=== PATIENT | female | born 1975 | race African-American/Black ===

== ENCOUNTER → 2019-10-27 | Outpatient (CLI) | payer OTHER ==
[~2019-10-27] MED LIST: ALBUTEROL0.09 MG/A3 IH; NO HOME MEDICATIONS; PREDNISONE20 MG PO
== END ==
LOC: COL.RAD 14:05
DX: D25.9 Leiomyoma of uterus, unspecified (principal)

== ENCOUNTER → 2019-11-03 | Outpatient (CLI) | payer OTHER | LOC: MC.RAD 15:15 | DX: Z12.31 Encounter for screening mammogram for malignant neoplasm of breast (principal); N63.14 Unspecified lump in the right breast, lower inner quadrant ==

== ENCOUNTER → 2019-11-10 | Outpatient (CLI) | payer OTHER | LOC: MC.RAD 07:00 | DX: Z12.31 Encounter for screening mammogram for malignant neoplasm of breast (principal) ==

== ENCOUNTER → 2020-05-11 | Outpatient (CLI) | payer OTHER ==
[~2020-05-11] MED LIST changes: +FERGON240 MG PO
== END ==
LOC: MC.RAD 09:54
DX: N63.10 Unspecified lump in the right breast, unspecified quadrant (principal)

== ENCOUNTER 2020-09-12 17:46 | Emergency (ER) | payer OTHER ==
[~2020-09-12] VITALS: Ht 162.6 cm; Wt 68.2 kg
[~2020-09-12 17:46] MED LIST changes: -FERGON240 MG PO
[2020-09-12 19:55] LABS: BASO % 0.1 % (0.0-2.0); EOS # 0.3 (0.0-0.7); EOS % 2.7 % (0-4.0); GRAN # 8.4 (1.4-6.5); LYMPH # 1.4 (1.2-3.4); LYMPH % 12.9 % (20.0-51.0); MEAN CELL VOLUME 61 fl (80.0-100.0); MEAN CORPUSCULAR HGB CONC 27 g/dl (33.0-37.0); MEAN PLATELET VOLUME 9.5 fl (7.4-10.4); MONO # 0.4 (0.1-0.6); MONO % 3.8 % (1.7-9.3); PLATELET COUNT 374 K/mm3 (130-400); RED BLOOD COUNT 4.87 M/mm3 (4.10-5.30); REDCELL DISTRIBUTION WIDTH-CV 23.5 % (11.5-14.5)
[2020-09-12 20:00] LABS: ALBUMIN 4.4 gm/dL (3.5-5.0); BILIRUBIN,TOTAL 0.7 mg/dL (0.0-1.0); CALCIUM 8.7 mg/dL (8.4-10.2); CREATININE, serum 0.58 (0.52-1.25); POTASSIUM 3.9 mmol/L (3.4-5.0); TOTAL PROTEIN 8.1 gm/dL (6.4-8.2)
[2020-09-12 20:14] LABS: HEMATOCRIT 29.7 % (37.0-47.0); HEMOGLOBIN 7.9 g/dl (12.5-16.0); MEAN CORPUSCULAR HEMOGLOBIN 16 pg (27.0-31.0)
[2020-09-12] MEDS ORDERED: PREDNISONE20 MG PO (20:40)
[2020-09-12] MEDS ORDERED: FERGON240 MG PO (20:40)
[2020-09-12 21:02] VITALS: BP 127/71; PULSE 77; TEMP 98.1
== END 2020-09-12 21:02 | disposition home or self-care, planned readmission (81) ==
LOC: COL.ER 17:46
PROVIDERS: Emergency Medicine
DX: J30.9 Allergic rhinitis, unspecified (principal); D64.9 Anemia, unspecified; J45.909 Unspecified asthma, uncomplicated; Z79.52 Long term (current) use of systemic steroids
CPT/HCPCS: J2930

== ENCOUNTER → 2020-11-19 | Outpatient (CLI) | payer OTHER ==
[~2020-11-19] MED LIST changes: +FERGON240 MG PO
== END ==
LOC: MC.RAD 13:00
DX: N63.10 Unspecified lump in the right breast, unspecified quadrant (principal)

== ENCOUNTER 2023-06-23 13:29 | Emergency (ER) | payer OTHER ==
[~2023-06-23] VITALS: Ht 162.6 cm; Wt 74.1 kg
[~2023-06-23 13:29] MED LIST changes: +CEFTIN 250250 MG/TAB PO
[2023-06-23 13:38] VITALS: TEMP 98.1
[2023-06-23] MEDS ORDERED: methylPREDNISolone Sod Succ 125 MG/2 ML VIAL IV ONE (14:00)
[2023-06-23] MEDS ORDERED: Albuterol/Ipratropium 3 MG-0.5 MG/3 ML Neb Soln IH ONE ×2 (14:00→15:00)
[2023-06-23 14:35] LABS: BASO % 0.5 % (0.0-2.0); EOS # 0.8 K/mm3 (0.0-0.7); EOS % 9.3 % (0.0-4.0); GRAN # 4.3 K/mm3 (1.4-6.5); GRAN % 53.1 % (42.2-75.2); HEMATOCRIT 37.2 % (37.0-47.0); HEMOGLOBIN 11.8 g/dl (12.5-16.0); LYMPH # 2.4 K/mm3 (1.2-3.4); LYMPH % 29.6 % (20.0-51.0); MEAN CELL VOLUME 77 fl (80.0-100.0); MEAN CORPUSCULAR HEMOGLOBIN 25 pg (27-31); MEAN CORPUSCULAR HGB CONC 32 g/dl (33.0-37.0); MEAN PLATELET VOLUME 10.1 fl (7.4-10.4); MONO # 0.6 K/mm3 (0.1-0.6); MONO % 7.4 % (1.7-9.3); PLATELET COUNT 332 K/mm3 (130-400); RED BLOOD COUNT 4.82 M/mm3 (4.10-5.30); REDCELL DISTRIBUTION WIDTH-CV 16.3 % (11.5-14.5)
[2023-06-23] MEDS ORDERED: ZITHROMAX Z PA250 MG PO (14:52)
[2023-06-23 14:58] LABS: ALBUMIN 3.6 g/dL (3.5-5.0); BILIRUBIN,TOTAL 0.8 mg/dL (0.2-1.2); CALCIUM 9.5 mg/dL (8.4-10.2); CREATININE, serum 0.77 mg/dL (0.57-1.11); POTASSIUM 3.3 mEq/L (3.5-4.5); TOTAL PROTEIN 7.6 g/dl (6.2-8.1)
[2023-06-23] MEDS ORDERED: Albuterol/Ipratropium 3 MG-0.5 MG/3 ML Neb Soln IH SCH (15:15)
[2023-06-23 17:21] VITALS: BP 147/81; PULSE 125
== END 2023-06-23 17:30 | disposition home or self-care (01) ==
LOC: COL.ER 13:29
PROVIDERS: Family Medicine
DX: J45.901 Unspecified asthma with (acute) exacerbation (principal)
CPT/HCPCS: J2919; J3475